=== PATIENT | male | born 2005 | race Caucasian/White ===

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

== ENCOUNTER 2025-01-05 17:51 | Emergency (ER) | payer BC, SELFPAY ==
[2025-01-05 18:00] VITALS: BP 139/89
--- NOTE | 2025-01-05 18:57 | ED.GENMED ---
History of Present Illness
General
Chief Complaint: Abdominal Pain
Time Seen by Provider: 01/05/25 18:57
History of Present Illness
History of Present Illness:
FOCUSED PAST MEDICAL HISTORY
- Diabetes, asthma
REVIEW OF OLD RECORDS
- I reviewed records, the patient was seen here with a knee sprain January 2024
Note:
CHIEF COMPLAINT(S)
Persistent and intermittent abdominal and back pain, increased urinary frequency.
HISTORY OF PRESENT ILLNESS
The patient is a 19-year-old male who presented with a three-day history of both abdominal and right-sided back pain accompanied by increased frequency of urination. The symptoms began on Thursday and have persisted intermittently. The patient reports
that the pain is non-severe, comes and goes, and worsens when sitting upright in a chair. He denies experiencing any pain while at rest or when not being touched. The patient notes that the pain does not worsen with palpation of the abdomen, and the
urgent care physician suggested a potential kidney stone. He was advised to go to the emergency room for a computed tomography (CT) scan. The patient denies any recent fever but reported diarrhea that began today. He is currently on Mounjaro for
diabetes and has not changed his dosage. The patient reported no change in appetite, attributing this to the medication. Urinalysis performed at urgent care was reported to be normal, with no documented hematuria.
SOCIAL DETERMINANTS AFFECTING HEALTH
The patient appears somewhat anxious during the visit.
PHYSICAL EXAM
General: Alert, no acute distress, appears somewhat anxious at times
Skin: Warm, dry.
Head: Normocephalic, atraumatic.
Neck: Supple, trachea midline.
Eye Ears, nose, mouth and throat: Oral mucosa moist.
Cardiovascular: Normal peripheral perfusion, No edema.
Respiratory: Respirations are non-labored.
Gastrointestinal: Abdomen soft, non-tender with no pain upon palpation.
Back: Normal range of motion, normal alignment. No CVA tenderness.
Musculoskeletal: Normal range of motion, normal strength.
Neurological: Alert and oriented to person, place, time, and situation, no focal neurological deficit observed.
Psychiatric: Cooperative
PLAN
Obtain a non-contrast CT scan of the abdomen to evaluate for possible kidney stones and to assess the appendix. Discuss results with the patient post-imaging to determine further steps based on findings.
DIFFERENTIAL DIAGNOSIS
The Differential Diagnosis includes, in no particular order and is not limited to:
- Nephrolithiasis (kidney stones)
- Appendicitis
- Urinary tract infection
- Gastroenteritis
- Pyelonephritis
- Musculoskeletal pain
- Constipation
- Pancreatitis
- Abdominal aortic aneurysm
- Diverticulitis
RADIOLOGY
- CT obtained and shows no acute abnormality
LABS
- White count normal 8.1, hemoglobin 18.4, chemistries unremarkable, total bili 1.5, lipase normal
UPDATE
-SUMMARY OF ENCOUNTER
The patient, a 19-year-old male, was seen in the emergency department for evaluation of persistent and intermittent abdominal and right-sided back pain with increased urinary frequency. A CT scan was conducted to rule out appendicitis and kidney
stones. The radiologist noted a possible thickening of the bladder wall, which was considered a normal variant due to the amount of urine present, despite the absence of a urinary tract infection as previously indicated. The CT scan findings were
considered normal, and no acute issues were identified.
DISPOSITION
Discharge.
PLAN
Discharge the patient with reassurance that the CT scan did not reveal any serious underlying conditions. Advise the patient to follow up with primary care or return to the emergency department if symptoms worsen or new symptoms develop.
INDEPENDENT REVIEW OF LABS AND INTERPRETATION OF TESTS
My independent interpretation of the CT scan was that there are no signs of appendicitis or kidney stones. There was an observed thickening of the bladder wall, but this was considered normal given the context and absence of significant urine volume.
PATIENT EDUCATION AND COUNSELING
The patient was educated that the CT scan findings did not indicate any serious underlying conditions and reassured that there were no immediate concerns. Advised to seek further medical attention if pain worsens or if any new symptoms occur.
FOLLOW-UP INSTRUCTIONS
Please contact the primary care office to schedule a follow-up visit for ongoing monitoring or return to the emergency department if symptoms escalate or new symptoms present.
MEDICAL DECISION MAKING
-Number and Complexity of Problems Addressed:
Chronic conditions affecting care include diabetes. The differential diagnosis considered includes nephrolithiasis (kidney stones), appendicitis, urinary tract infection, gastroenteritis, pyelonephritis, musculoskeletal pain, constipation,
pancreatitis, abdominal aortic aneurysm, and diverticulitis.
-Data:
Category 1
My independent interpretation of the CT scan indicates normal findings without evidence of appendicitis or kidney stones.
-Risk:
The risk was deemed low given the normal CT findings and stable clinical presentation. The patient was considered safe for outpatient management with reassurance provided.
DIAGNOSIS
Abdominal pain, unspecified (R10.9)
Back pain, unspecified (M54.9)
The patient was instructed to follow up with primary care for ongoing symptoms and any needed further evaluation.
Phy Exam
Physical Exam
Physical Exam:
See HPI
Course
Orders/Labs/Results
Orders:
Orders
01/05/25 19:09
CT Abd/pel Without Iv Or Oral Urgent
Comment:
Reason For Exam: R flank / abd pain; change in urination
01/05/25 19:11
CBC/With Diff [Complete Blood Count/With Diff] Urgent
CMP [Comprehensive Metabolic Panel] Urgent
Lipase Urgent
Abnormal Lab Results
01/05/25
19:11
RBC 6.56 H 10^6/uL
(4.70-6.10)
Hgb 18.4 H g/dL
(13.0-18.0)
Hct 52.5 H %
(39.0-52.0)
MPV 10.5 H fL
(7.4-10.4)
Absolute Monos (auto) 0.7 H 10^3/uL
(0.1-0.6)
Total Bilirubin 1.5 H mg/dl
(0.2-1.3)
Total Protein 8.6 H g/dl
(6.3-8.2)
Albumin 5.5 H g/dl
(3.5-5.0)
01/05/25 19:11
01/05/25 19:11
Vital Signs
Initial and Last Documented VS:
Initial Vital Signs
Temp Pulse Resp BP Pulse Ox
37.1 C 94 16 139/89 99
01/05/25 18:00 01/05/25 18:00 01/05/25 18:00 01/05/25 18:00 01/05/25 18:00
Last Documented Vital Signs
Temp Pulse Resp BP Pulse Ox
37.1 C 94 16 139/89 99
01/05/25 18:00 01/05/25 18:00 01/05/25 18:00 01/05/25 18:00 01/05/25 18:58
*Pulse Oximetry
SaO2: 99
Oxygen Mode of Delivery: Room air
Patient hypoxic: no
*Critical Care Note
Total Time (30-74mins, 75-104mins- exclusive of procedures): Not Applicable
ED Attending Note
-
Portions of this chart may have been created with voice recognition software.� Occasional wrong word or��sound alike� substitutions may have occurred due to the inherent limitations of voice recognition software.
Discharge Plan
Departure
Patient Disposition: Home (Routine Discharge)
Date of Disposition: 01/05/25
Time of Disposition: 21:52
Patient with high blood pressure during this ER visit?: Yes
Discharge Problem:
Abdominal pain
Instructions: Abdominal Pain, BLOOD PRESSURE
Prescriptions:
No Action
No Current Medications
0
Referrals:
Miguel Saul MD [Family Provider]
Activity Restrictions/Additional Instructions:
The cause of your symptoms is unclear. There is no clear sign of kidney stone and no sign of appendicitis. Basic blood work is normal. Return if worse or other concerns.
Interventions
Interventions:
*Risk Screen - Suicide Last Done: 01/05/25 18:00
*Neglect/Abuse Screening Last Done: 01/05/25 18:00
*Nursing Disposition Last Done: 01/05/25 22:06
CE-Lmypfq-Gxhfcfywrs Assessment Last Done: 01/05/25 19:17
Discharge Date and Time
Discharge Date/Time: 01/05/25 22:07
Print Language: VIET[place]ESE
[2025-01-05 19:17] VITALS: BMI 33.6
[2025-01-05 19:20] LABS: Hematocrit 52.5 % (39.0-52.0); Hemoglobin 18.4 g/dL (13.0-18.0); Mean Corp Hgb Conc. 35.0 g/dL (33.0-37.0); Mean Corpuscular Volume 80.0 fL (80.0-94.0); Nucleated Red Blood Cells % 0 % (-); Platelet Count 231 10^3/uL (130-400); Red Cell Dist. Width 12.3 % (11.5-14.5)
[2025-01-05 19:40] LABS: ALT (SGPT) 45 U/L (0-50); AST (SGOT) 35 U/L (17-59); Albumin 5.5 g/dl (3.5-5.0); Alkaline Phosphatase 53 U/L (38-126); Blood Urea Nitrogen 19 mg/dl (9-20); Calcium 10.0 mg/dl (8.4-10.2); Carbon Dioxide 27 mmol/L (22-30); Chloride 101 mmol/L (98-107); Estimated Creatinine Clearance > 125 ml/min; Glucose 88 mg/dl (70-99); Lipase 294 U/L (23-300); Potassium 4.2 mmol/L (3.5-5.1); Sodium 138 mmol/L (135-145); Total Protein 8.6 g/dl (6.3-8.2); eGFR > 60.00
== END 2025-01-05 22:07 | disposition home or self-care (01) ==
LOC: EMR 17:51
PROVIDERS: EMERGENCY PHYSICIAN Emergency Medicine; FAMILY PHYSICIAN Family Medicine
DX: R10.9 Unspecified abdominal pain (principal); E11.9 Type 2 diabetes mellitus without complications; J45.909 Unspecified asthma, uncomplicated; Z79.85 Long-term (current) use of injectable non-insulin antidiabetic drugs
CPT/HCPCS: 99284; 74176; 80053; 83690; 85025